=== PATIENT | female | born 1960 | race Caucasian/White ===

== ENCOUNTER 2018-09-01 10:00 | Emergency (ER) | payer OTHER ==
[~2018-09-01] VITALS: Ht 167.6 cm; Wt 108.9 kg
[~2018-09-01 10:00] MED LIST: DOXYCYCLINE 10100 MG PO
[2018-09-01] MEDS ORDERED: MOBIC7.5 MG PO (10:10)
[2018-09-01] MEDS ORDERED: ZOCOR20 MG PO (10:10)
[2018-09-01] MEDS ORDERED: MICROZIDE12.5 MG PO (10:10)
[2018-09-01] MEDS ORDERED: BENAZEPRIL 10 M10 MG PO (10:11)
[2018-09-01 11:19] LABS: ABSOLUTE BASOPHILS 0.1 thou/uL (0.0-0.2); ABSOLUTE EOSINOPHILS 0.4 thou/uL (0.0-0.7); ABSOLUTE MONOCYTES 0.8 thou/uL (0.0-1.2); ABSOLUTE NEUTROPHILS 8.7 thou/uL (1.6-8.1); BASOPHILS 0.8 %; EOSINOPHILS 3.1 %; HEMATOCRIT 45.1 % (37.0-47.0); HEMOGLOBIN 15.1 gm/dL (12.0-15.0); MCH 28.3 pg (26.0-34.0); MCHC 33.4 g/dL (28.0-37.0); MCV 84.7 fL (80.0-100.0); MPV 8.7 fl. (7.2-11.1); NUCLEATED RBCS 0 /100WBC; PLATELET COUNT* 297 thou/uL (150-400); POLYS 67.1 %; RBC 5.33 mil/uL (4.20-5.00); RDW-CV 13.9 % (10.5-14.5)
[2018-09-01 11:25] LABS: ALBUMIN 3.7 g/dL (3.4-5.0); CALCIUM 9.5 mg/dL (8.5-10.1); CREATININE 0.8 mg/dL (0.6-1.3); POTASSIUM 4.3 mmol/L (3.5-5.1); TOTAL BILIRUBIN 0.4 mg/dL (<0.1-1.0); TOTAL PROTEIN 7.7 g/dL (6.4-8.2)
[2018-09-01 11:43] LABS: ANISOCYTOSIS 1+; PLATELET ESTIMATE ADEQUATE; POIKILOCYTOSIS 1+
[2018-09-01 13:37] LABS: URINE BILIRUBIN NEGATIVE (Negative); URINE BLOOD NEGATIVE (Negative); URINE CLARITY CLEAR; URINE COLOR YELLOW; URINE GLUCOSE-RANDOM NEGATIVE (Negative); URINE KETONES NEGATIVE (Negative); URINE LEUKOCYTES-REFLEX NEGATIVE (Negative); URINE NITRITE-REFLEX NEGATIVE (Negative); URINE PROTEIN NEGATIVE (Negative); URINE SPECIFIC GRAVITY 1.015 (1.005-1.030); URINE UROBILINOGEN 0.2 E.U./dl (0.2-1.0)
[2018-09-01] MEDS ORDERED: CIPRO500 MG PO (13:44)
[2018-09-01] MEDS ORDERED: NORCO 5-325 TA1 EACH PO (13:47)
[2018-09-01 14:59] VITALS: BP 146/84
== END 2018-09-01 15:00 | disposition home or self-care (01) ==
LOC: M.ERS 10:00
PROVIDERS: Nurse Practitioner Family
DX: N36.1 Urethral diverticulum (principal); I10 Essential (primary) hypertension; F17.210 Nicotine dependence, cigarettes, uncomplicated; Z98.890 Other specified postprocedural states; Z88.0 Allergy status to penicillin

== ENCOUNTER 2018-09-02 01:31 | Emergency (ER) | payer OTHER ==
[~2018-09-02] VITALS: Ht 167.6 cm; Wt 108.9 kg
[~2018-09-02 01:31] MED LIST changes: +BENAZEPRIL 10 M10 MG PO; +CIPRO500 MG PO; +MICROZIDE12.5 MG PO; +MOBIC7.5 MG PO; +NORCO 5-325 TA1 EACH PO; +ZOCOR20 MG PO
[2018-09-02 03:39] LABS: URINE BILIRUBIN NEGATIVE (Negative); URINE BLOOD 3+ (Negative); URINE CLARITY CLEAR; URINE COLOR ORANGE; URINE GLUCOSE-RANDOM TRACE (Negative); URINE KETONES NEGATIVE (Negative); URINE LEUKOCYTES-REFLEX TRACE (Negative); URINE PROTEIN 2+ (Negative)
[2018-09-02 03:41] LABS: URINE NITRITE-REFLEX POSITIVE (Negative)
[2018-09-02 03:47] VITALS: BP 136/69
[2018-09-02 04:32] LABS: CASTS None Seen /LPF (None Seen); SQUAMOUS >10 Many /LPF (0-3)
[2018-09-02 04:33] LABS: URINE RBC >20 Many /HPF (0-2)
[2018-09-02 04:34] LABS: CRYSTALS None Seen /LPF (None Seen)
== END 2018-09-02 03:52 | disposition left against medical advice (07) ==
LOC: M.ERS 01:31
PROVIDERS: Emergency Medicine
DX: T83.098A Other mechanical complication of other urinary catheter, initial encounter (principal); I10 Essential (primary) hypertension; Z88.0 Allergy status to penicillin; Z98.890 Other specified postprocedural states; Y84.8 Other medical procedures as the cause of abnormal reaction of the patient, or of later complication, without mention of misadventure at the time of the procedure; Y92.89 Other specified places as the place of occurrence of the external cause